=== PATIENT | female | born 2000 | race Caucasian/White ===

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

== ENCOUNTER → 2020-01-01 16:25 | Outpatient (BNVA) | payer MEDICAID, SELFPAY | PROVIDERS: Family Provider Nurse Practitioner Family; PCP Nurse Practitioner Family; Visit Provider Obstetrics & Gynecology | DX: Z34.83 Encounter for supervision of other normal pregnancy, third trimester (principal) | CPT/HCPCS: 76816; 76820; 81000 ==

== ENCOUNTER → 2020-01-09 14:16 | Outpatient (BNVA) | payer MEDICAID, SELFPAY | PROVIDERS: Family Provider Nurse Practitioner Family; Visit Provider Obstetrics & Gynecology | DX: Z34.83 Encounter for supervision of other normal pregnancy, third trimester; Z3A.00 Weeks of gestation of pregnancy not specified | CPT/HCPCS: 81000 ==

== ENCOUNTER → 2020-01-15 10:55 | Outpatient (BNVA) | payer MEDICAID, SELFPAY | PROVIDERS: Family Provider Nurse Practitioner Family; Visit Provider Obstetrics & Gynecology | DX: O99.613 Diseases of the digestive system complicating pregnancy, third trimester (principal); K21.9 Gastro-esophageal reflux disease without esophagitis; Z3A.40 40 weeks gestation of pregnancy | CPT/HCPCS: 81000 ==

== ENCOUNTER 2020-01-17 17:08 | Outpatient (CLI) | payer MEDICAID, SELFPAY ==
[2020-01-17] VITALS (7 sets, daily range): BP systolic 0–150; BP diastolic 0–91; PULSE 58–77; RESP 16; TEMP 36.6; BMI 30.8
== END 2020-01-17 19:21 | disposition home or self-care (01) ==
LOC: OPOB 17:09 → OBGYN 19:19
PROVIDERS: Family Provider Nurse Practitioner Family; Visit Provider Obstetrics & Gynecology
DX: O62.2 Other uterine inertia (principal); Z3A.00 Weeks of gestation of pregnancy not specified
CPT/HCPCS: 59025; 99211

== ENCOUNTER 2020-01-19 02:30 | Inpatient (IN) | payer MEDICAID, SELFPAY ==
[2020-01-19] VITALS (114 sets, daily range): BP systolic 0–152; BP diastolic 0–90; PULSE 54–122; RESP 16–18; TEMP 36.9–37.2; O2SAT 96–98; BMI 30.7
[2020-01-19 03:25] LABS: Basophils % 0.2 %; Eosinophils % 0.1 %; Hematocrit 39.6 % (37.0-47.0); Hemoglobin 13.1 g/dL (11.5-15.3); Lymphocytes # 1.5 10^3/uL (1.5-6.5); Mean Corpuscular HGB Conc 33.1 g/dL (30.0-36.0); Mean Corpuscular Hemoglobin 27.3 pg (28.0-34.0); Mean Corpuscular Volume 82.7 fL (81-99); Mean Platelet Volume 11.7 fL (7.4-10.4); Monocytes # 0.6 10^3/uL (0.2-0.9); Monocytes % 4.5 %; Neutrophils # 11.5 10^3/uL (1.8-8.0); Neutrophils % 83.6 %; Nucleated Red Blood Cells % 0 %; Platelet Count 195 10^3/cmm (130-400); Red Blood Count 4.79 10^6/uL (4.1-5.3); Red Cell Distribution Width 12.9 % (12.1-15.1); White Blood Count 13.8 10^3/uL (4.5-13.0)
[2020-01-19] MEDS: lactated ringers 1,000 ML 999 ML IV (04:04)
[2020-01-19] MEDS: dextrose 5%-lactated ringers 1,000 ML 125 ML IV ×2 (05:08→14:29)
--- NOTE | 2020-01-19 05:10 | ANES.PREANE2 ---
Pre-Anesthetic Assessment Pre-Anesthetic Assessment: Height/Weight: Height 1.52 m Weight 71.214 kg Temp Pulse Resp BP Pulse Ox 98.6 F 102 H 18 0/0 96 01/19/20 04:50 01/19/20 05:39 01/19/20 04:50 01/19/20 05:42 01/19/20 05:39 Preop Diagnosis: IUP 39 6/7wk Proposed Procedure: labor epidural Was Beta Arash taken within 24 hours: N/A Social: Social History: No alcohol and No tobacco Exam: Pre-Anes Outpt Exam: alert, oriented x 3, clear to auscultation bilaterally and regular rate & rhythm Airway: Submandibular: WNL Cervical ROM: WNL MP: 2 History/ROS: No significant history except as noted Pulmonary: Pulmonary: None reported CV/HEM: CV/HEM: None reported : : None reported Hepatic: Hepatic: None reported GI: GI: GERD Metabolic: Metabolic: None reported Musc/skel: Musc/skel: None reported Neuropsych: Neuropsych: None reported Anesthetic Plan: ASA status: 1 Anesthesia: Anesthesia Evaluation Risk of > 500 ml blood loss (7ml/kg in children): No Meds/Allergies Current Medications: Current Medications Generic Name Dose Route Start Last Admin Trade Name Freq PRN Reason Stop Dose Admin Dextrose/Lactated Ringer's 1,000 mls @ 125 m ls/hr 01/19/20 02:45 01/19/20 05:08 Dextrose 5%-Lact ated Ringers IV 125 mls/hr .Q8H ANGEL Administration Lactated Ringer's 1,000 mls @ 999 m ls/hr 01/19/20 02:44 01/19/20 05:08 Lactated Ringers IV Infused .Q1H1M PRN Infusion ANESTHESIA PFSH Anesthesia PFSH: Surgical History No pertinent past surgical history Family History Grandfather Cancer Maternal grandfather-colon cancer Grandmother CAD (coronary artery disease) Maternal grandmother Cancer Paternal grandmother-breast cancer Mother Hypertension Denies family history of Diabetes Stroke Social History Smoking and tobacco status: never smoked Alcohol intake: never Female Reproductive History: : 2 Data Anesthesia CBC & Chem 7: 01/19/20 03:20 Other Labs: Laboratory Results - last 48 hr 01/19/20 03:20 WBC 13.8 H RBC 4.79 Hgb 13.1 Hct 39.6 MCV 82.7 MCH 27.3 L MCHC 33.1 RDW 12.9 Plt Count 195 MPV 11.7 H Neut % (Auto) 83.6 Lymph % (Auto) 11.0 [place] % (Auto) 4.5 Eos % (Auto) 0.1 Baso % (Auto) 0.2 Neut # (Auto) 11.5 H Lymph # (Auto) 1.5 [place] # (Auto) 0.6 Eos # (Auto) 0.0 Baso # (Auto) 0.0 Nucleated RBC % (auto) 0 Nucleated RBCs # 0.0 Cardiac Studies: No Data to Display
--- NOTE | 2020-01-19 05:47 | ANES.PROC ---
Anesthesia Procedures Procedure/Date: 01/19/20 Epidural: Time Out Performed: Yes Consents Signed: Procedure Consent Consent: requested by attending/covering physician Lumbar Level: L4-L5 Epidural position: sitting Epidural procedure: sterile prep of area, 1% lidocaine to numb the area, 18 g needle, negative for paresthesia passed, neg for paresthesia, test dose given, 1.5% xylocaine 1:200k epi (5ml), placed PCEA, no systemic response, sterile dressing applied, L.U.D. no apparent complications and 0.2% Ropiavacaine @ mls/hr (10)
--- NOTE | 2020-01-19 16:12 | PM.DELIVERY ---
Delivery Note: Date of delivery: January 19, 2020 Pre-delivery diagnoses: 1. Term at 40-6/7 weeks gestation 2. Gastroesophageal reflux complicating in third trimester Post-delivery diagnoses: 1. Term at 40-6/7 weeks gestation. 2. Meconium fluid. 3. Viable male infant. 4. Gastroesophageal reflux complicating - delivered Procedure: Spontaneous vaginal delivery Op report anesthesia: Epidural Delivering Physician: Dr. Salvador Solitario Estimated blood loss (mL): 100 Pre-Delivery Course: H&P: Office note from 01/15/2020 Patient is a 19-year-old white female 2, para 0-0-1-0 with an LMP of 04/08/2019 and an EDC of 01/13/2020 based on LMP and consistent with 20-week ultrasound, which placed her at 40-6/7 weeks gestation at the time of admission. She presented to labor and delivery at 01:55 on 01/19/2020 with a complaint of contractions. She had been originally scheduled to be induced in the morning of 01/20/2020. Her care has been mainly provided by Dr. Gibbons. On initial presentation she was found to be 95% effaced, 4 cm dilated, and a -2 station. She was manju every 3 to 5 minutes. At her last visit in the office on 01/15/2020, she was 20% effaced and 1 cm dilated. She was admitted to the hospital and monitored through the night. She became uncomfortable enough that she had epidural placed. By 05:55 she had progressed to 6 cm dilation and 95% effaced. Bulging membranes were present. She made slow progress through the morning. She had spontaneous rupture of membranes at 12:10. She was 7 cm dilated at the time. She progressed to complete dilation by 15:00 during the labor course she had frequent early decelerations with variable decelerations and occasional lates. Overall, tracing was reassuring. Delivery: She started pushing at 15:18 and delivered at 15:52 as a spontaneous vaginal delivery of an occiput anterior male infant over an intact perineum under epidural anesthesia. Following delivery of the infant's head, no nuchal cords were noted. The rest of the infant delivered atraumatically. As the body delivered meconium fluid was noted. This was not seen prior to delivery of the body. Nose and mouth were suctioned with bulb suction. was placed on the mother's abdomen where the cord was clamped. It was cut by the reported father the baby. Nurses then took the baby to the warmer for further evaluation. It had started crying at that time. Cord blood was obtained. Placenta delivered intact by simple expression at 15:57. Pitocin bolus was started. Cervix and vagina were palpated and noted to be intact. Labia were inspected and noted to be intact except for superficial abrasions and a first-degree midline hymenal ring laceration. None of this required repair. FINDINGS 1. Viable male infant weighing 5 pounds 9 ounces (2525 g) with a length of 20 inches and Apgars of 7 at 1 minute and 8 at 5 minutes. 2. Three-vessel cord with no loops of nuchal cord noted. 3. Normal-appearing placenta with an eccentric cord insertion. Post-Delivery Status: Mother was left to recover in satisfactory condition. was taken to the term nursery for further monitoring. A&P Assessment and plan (1) Term delivered: Status: Acute (2) Meconium stained amniotic fluid, delivered, current hospitalization: Status: Acute (3) Gastroesophageal reflux in in third trimester: Status: Acute (4) Term of male : Status: Acute Coding Level of Care Code Acute Emt Intermediate for Chg Fwd Diagnoses Term delivered O80 Meconium stained amniotic fluid, delivered, current hospitalization O77.0 Gastroesophageal reflux in in third trimester O99.613; K21.9 Term of male Z37.0
[2020-01-19] MEDS: oxytocin 30 UNIT/500 ML BAG 600 UNIT IV (17:40)
[2020-01-19] MEDS: docusate sodium 100 mg Capsule PO (18:25)
[2020-01-20 05:05] VITALS: BP 122/77; PULSE 70; RESP 17
[2020-01-20 07:12] LABS: Hematocrit 37.6 % (37.0-47.0); Hemoglobin 12.2 g/dL (11.5-15.3); Mean Corpuscular HGB Conc 32.4 g/dL (30.0-36.0); Mean Corpuscular Hemoglobin 27.8 pg (28.0-34.0); Mean Corpuscular Volume 85.6 fL (81-99); Mean Platelet Volume 12.5 fL (7.4-10.4); Platelet Count 167 10^3/cmm (130-400); Red Blood Count 4.39 10^6/uL (4.1-5.3); Red Cell Distribution Width 13.2 % (12.1-15.1); White Blood Count 12.9 10^3/uL (4.5-13.0)
[2020-01-20] MEDS: docusate sodium 100 mg Capsule PO (09:27)
[2020-01-20] MEDS: prenatal vitamin Capsule 1 CAP PO (09:27)
[2020-01-20 10:05] VITALS: BP 126/88; PULSE 62; RESP 18; TEMP 36.6
[2020-01-20 13:10] VITALS: BP 123/86; PULSE 60; TEMP 36.8; O2SAT 97
[2020-01-20 16:55] VITALS: BP 113/76; PULSE 64; RESP 16; TEMP 36.6; O2SAT 97
--- NOTE | 2020-01-20 18:08 | PM.PN ---
Subjective Subjective: Interval history: SUBJECTIVE: Ms. Fish is doing well today. She has very minimal pain and denies heavy vaginal bleeding. She she is tolerating regular diet and voiding freely and passing flatus and has been ambulating well. She denies fever, chills, shortness of breath and chest pain. She overall feels pretty good. She continues to want her son to have a circumcision however understands that because of his respiratory problems that this will have to be postponed for now. OBJECTIVE/PHYSICAL EXAM: Gen.: No acute distress Heart: S1-S2 heard, regular rate and rhythm Lungs: Clear to auscultation bilaterally Abdomen: Soft, fundus firm below umbilicus, Legs: No calf tenderness, trace bilateral pitting pedal edema. ASSESSMENT AND PLAN: 19-year-old 2 para 1-0-1-1 status post vaginal delivery on 01/19/2020, day #1 -Continue routine care, ambulate, p.o. pain medication, sitz bath as needed -Patient would like to stay as an inpatient until tomorrow given babies continued admission -Anticipate discharge home tomorrow as long she continues to do well -Vital signs stable, hemoglobin stable at 12.2 -Acid reflux has resolved. Vitals/I&O/Wt Last Vital Signs Temp 98.2 F 01/21/20 10:54 Pulse 66 01/21/20 10:54 Resp 16 01/21/20 10:54 BP 108/72 01/21/20 10:54 Pulse Ox 96 01/21/20 10:54 Physical Exam Urinary Catheter Management^: Chavez: Cath Placed During This Visit: yes, but has since been removed by the nurse Reason for Continuing Indwelling Catheter: Decision to DC Catheter Urinary Catheter Date of Insertion: 01/19/20 Urinary Catheter Time of Insertion: 05:55 Date Urinary Catheter Removed: 01/19/20 Time Urinary Catheter Discontinued: 15:05 Data : 01/20/20 06:00 Attestations Medical Necessity Statement*: Patient to [facility] tomorrow for recovery from delivery Coding Level of Care Code Acute Electronic Induction Hardener for Conner Mcallister
[2020-01-20 22:00] VITALS: BP 117/64; PULSE 75; RESP 18; TEMP 36.7; O2SAT 98
[2020-01-21 09:09] VITALS: BP 88/53; PULSE 71; RESP 16; TEMP 36.6; O2SAT 97
[2020-01-21] MEDS: docusate sodium 100 mg Capsule PO ×2 (09:36→18:12)
[2020-01-21] MEDS: prenatal vitamin Capsule 1 CAP PO (09:36)
[2020-01-21 10:54] VITALS: BP 108/72; PULSE 66; RESP 16; TEMP 36.8; O2SAT 96
--- NOTE | 2020-01-21 18:11 | P.DS_ITS ---
Discharge Providers Date of Admission: 01/19/20 02:30 Date of Discharge: January 21, 2020 Diagnoses at Discharge Discharge Diagnosis (1) Term delivered: Status: Acute (2) Meconium stained amniotic fluid, delivered, current hospitalization: Status: Acute (3) Gastroesophageal reflux in in third trimester: Status: Acute (4) Term of male : Status: Acute Reason for Visit Reason for Visit: CONTRACTIONS Hospital Course Discharge Summary: PRE-DELIVERY DIAGNOSES: 1. Term at 40-6/7 weeks gestation 2. Gastroesophageal reflux complicating in third trimester POST-DELIVERY DIAGNOSES: 1. Term at 40-6/7 weeks gestation. 2. Meconium fluid. 3. Viable male . 4. Gastroesophageal reflux complicating - delivered PROCEDURE: Spontaneous vaginal delivery OP REPORT ANESTHESIA: Epidural Delivering Physician: Dr. Salvador Solitario PRE-DELIVERY COURSE: Patient is a 19-year-old white female 2, para 0-0-1-0 with an LMP of 04/08/2019 and an EDC of 01/13/2020 based on LMP and consistent with 20-week ult rasound, which placed her at 40-6/7 weeks gestation at the time of admission. She presented to labor and delivery at 01:55 on 01/19/2020 with a complaint of contractions. She had been originally scheduled to be induced in the morning of 01/20/2020. Her care has been mainly provided by Dr. Gibbons. On initial presentation she was found to be 95% effaced, 4 cm dilated, and a -2 station. She was manju every 3 to 5 minutes. At her last visit in the office on 01/15/2020, she was 20% effaced and 1 cm dilated. She was admitted to the hospital and monitored through the night. She became uncomfortable enough that she had epidural placed. By 05:55 she had progressed to 6 cm dilation and 95% effaced. Bulging membranes were present. She made slow progress through the morning. She had spontaneous rupture of membranes at 12:10. She was 7 cm dilated at the time. She progressed to complete dilation by 15:00 during the labor course she had frequent early decelerations with variable decelerations and occasional lates. Overall, tracing was reassuring. DELIVERY: She started pushing at 15:18 and delivered at 15:52 as a spontaneous vaginal delivery of an occiput anterior male over an intact perineum under epidural anesthesia. Following delivery of the infant's head, no nuchal cords were noted. The rest of the delivered atraumatically. As the body delivered meconium fluid was noted. This was not seen prior to delivery of the body. Nose and mouth were suctioned with bulb suction. Infant was placed on the mother's abdomen where the cord was clamped. It was cut by the reported father the baby. Nurses then took the baby to the warmer for further evaluation. It had started crying at that time. Cord blood was obtained. Placenta delivered intact by simple expression at 15:57. Pitocin bolus was started. Cervix and vagina were palpated and noted to be intact. Labia were inspected and noted to be intact except for superficial abrasions and a first-degree midline hymenal ring laceration. None of this required repair. FINDINGS 1. Viable male weighing 5 pounds 9 ounces (2525 g) with a length of 20 inches and Apgars of 7 at 1 minute and 8 at 5 minutes. 2. Three-vessel cord with no loops of nuchal cord noted. 3. Normal-appearing placenta with an eccentric cord insertion. HOSPITAL COURSE: She underwent an uncomplicated vaginal delivery 01/19/[address] Solitario. She did well on day 0 and was ambulating well, tolerating regular diet, voiding freely, passing flatus. She was breast-feeding without difficulty and bonding well with her son. He did develop a spontaneous pneumothorax and required some oxygen support and also had some low blood sugars required IV fluids. Pain was well-controlled with by mouth pain medication. She denied nausea, vomiting, fever, chills, shortness of breath, leg pain. She had moderate vaginal bleeding. On day # 1 she continued to do well with stable vital signs and stable hemoglobin at 12.2. She desired to stay another day as her baby was being monitored. She continued to do well into day #2 with stable vital signs. Pain was well-controlled with as needed ibuprofen she was discharged home on day 2 in a stable condition to room and with baby. Warning signs for endometritis, mastitis, DVT/PE were reviewed with her. Post delivery activity restrictions were also reviewed with her at all her questions were answered to her satisfaction. She has not decided what she wants to use for contraception and will discuss this with Dr. Gibbons at her 6-week visit. EXAM AT DISCHARGE: Gen.: No acute distress Heart: S1-S2 heard, regular rate and rhythm Lungs: Clear to auscultation bilaterally Abdomen: Soft, fundus firm below umbilicus Legs: No calf tenderness, trace bilateral pitting pedal edema. CONDITION AT DISCHARGE: Stable Physical Exam Urinary Catheter Management^: Chavez: Cath Placed During This Visit: yes, but has since been removed by the nurse Reason for Continuing Indwelling Catheter: Decision to DC Catheter Urinary Catheter Date of Insertion: 01/19/20 Urinary Catheter Time of Insertion: 05:55 Date Urinary Catheter Removed: 01/19/20 Time Urinary Catheter Discontinued: 15:05 Discharge Data Vitals: Last Vital Signs Temp 98.2 F 01/21/20 10:54 Pulse 66 01/21/20 10:54 Resp 16 01/21/20 10:54 BP 108/72 01/21/20 10:54 Pulse Ox 96 01/21/20 10:54 Discharge Plan Discharge Patient Disposition: Home, Self-Care Condition: Stable Prescriptions: New docusate sodium 100 mg Capsule 100 mg PO BID PRN (Reason: constipation) Qty: 30 RF: 0 Continued prenat.vits,alex,[id number] Tablet 1 tab PO DAILY RF: 0 famotidine [Pepcid] 20 mg tablet 20 mg PO BID Qty: 60 RF: 4 Discharge Orders: Discharge Order (Routine); Ordered 01/21/20 Ordered By: Shade Ballesteros Referrals: Octavio Gibbons MD [Physician] - (Follow-up in [address] Gibbons for visit) Discharge Diet: Regular Patient Instructions: Vitamins (By mouth), OB Discharge Report, OB Food/Drug Interaction Guide, OB Proud Parent Packet, OB Vaginal Deliveries Activity Restrictions/Additional Instructions: Pelvic rest for 6 weeks, no heavy lifting for 6 weeks Discharge Attestations Time Spent in Discharge Care*: greater than 30 min Quality Metrics Clinical Quality Measures During this hospital stay, did patient experience: None Coding Level of Care Code Acute Sales Development Director for Chg Fwd Diagnoses Term delivered O80 Meconium stained amniotic fluid, delivered, current hospitalization O77.0 Gastroesophageal reflux in in third trimester O99.613; K21.9 Term of male Z37.0
[2020-01-21 23:30] VITALS: BP 123/78; PULSE 58; RESP 18; TEMP 36.6; O2SAT 97
== END 2020-01-21 23:30 | disposition home or self-care (01) | DRG 807 ==
LOC: OPOB 16:21 → OBGYN 16:21
PROVIDERS: Obstetrics & Gynecology; Admitting Provider Obstetrics & Gynecology; Visit Provider Obstetrics & Gynecology
DX: O77.0 Labor and delivery complicated by meconium in amniotic fluid (principal); Z37.0 Single live birth; Z3A.40 40 weeks gestation of pregnancy; O99.284 Endocrine, nutritional and metabolic diseases complicating childbirth; K21.9 Gastro-esophageal reflux disease without esophagitis; O76 Abnormality in fetal heart rate and rhythm complicating labor and delivery; O70.0 First degree perineal laceration during delivery
CPT/HCPCS: 12345; 36415; 51702; 59025; 59409; 85025; 85027; 99211; J2795